=== PATIENT | female | born 1950 | race Caucasian/White ===

== ENCOUNTER 2023-02-28 09:20 | Emergency (ER) | payer OTHER, SELFPAY ==
[2023-02-28 09:28] VITALS: BP 154/93; PULSE 95; RESP 20; TEMP 38.1; O2SAT 94; BMI 27.0
--- NOTE | 2023-02-28 09:33 | CRLHL7_ITS ---
For Patients: As a result of the Century Cures Act, medical imaging exams and procedure reports are released immediately into your electronic medical record. You may view this report before your referring provider. If you have questions, please contact your health care provider. INDICATION: Cough TECHNIQUE: Chest 1 view COMPARISON: 09/23/2017 FINDINGS: Hiatal hernia. Degenerative changes at the left shoulder. No pneumothorax or large volume pleural effusion. IMPRESSION: No acute findings. Dictated by Maxwell Martell MD @ 02/28/2023 10:08:05 AM (Electronically Signed)
--- NOTE | 2023-02-28 09:34 | ED.GENADULT ---
HPI - General Adult General Chief complaint: Fever Stated complaint: Waking up due to cough, fever Time Seen by Provider: 02/28/23 09:25 History of Present Illness HPI narrative: Patient is a 69-year-old female without significant medical history or lung issues, presents with a cough for the last 3 days. Has had a low-grade temp. Her 's home recovering from ruptured appendicitis and subsequent surgery, and she is worried about getting him sick. She has had a low-grade temp. She has had a cough. She actually reports that over the last few hours and last night she felt better. She has had no chills rigors. She has a low-grade temperature now 100.5. The patient denies production to her cough denies shortness of breath, denies chest pain, denies rigors as mention. She has not had regular pneumonia ear infections. Review of Systems Status of ROS: Reports: 6 or more systems reviewed and unremarkable except as noted in History and below [facility] Social History Smoking Status: Never smoker Do you use any of these nicotine containing products: None Second hand tobacco smoke exposure: No How often do you have a drink containing alcohol: 2-4 times a month How many standard drinks containing alcohol do you have on a typical day: 1 or 2 How often do you have six or more drinks on one occasion: Never AUDIT-C Alcohol total score: 2 Non-prescribed substance use: denies use service: No Exam Narrative: Exam Narrative: Objective: Patient is alert orient x3 Temp is 100.5? Noncyanotic, breathing normally, talks in even unlabored sentences denies chest her pain or shortness of breath HEENT is unremarkable no facial asymmetry Mouth is clear Neck is supple Chest is clear no rales or wheezing Heart rhythm regular heart murmur Extremities are no edema, neurologic grossly nonfocal. Patient is ambulatory. Const: Vital Signs, click to edit/add: Vital Signs - 24 hr 02/28/23 09:28 02/28/23 10:30 02/28/23 10:38 Temperature 100.5 F H 100.5 F H Pulse Rate [Pulse Oximeter] 95 86 95 Respiratory Rate 20 16 20 Blood Pressure [Ri ght Arm] 126/84 Blood Pressure [Ri ght Upper Arm] 154/93 H 154/93 H Pulse Oximetry 94 95 Oxygen Delivery Me thod Room Air Room Air Course Vital Signs Vital signs: Initial Vital Signs Temperature 100.5 F H 02/28/23 09:28 Temperature Source Temporal Artery Scan 02/28/23 09:28 Pulse Rate 95 02/28/23 09:28 Pulse Rhythm Regular 02/28/23 09:28 Respiratory Rate 20 02/28/23 09:28 Blood Pressure 154/93 H 02/28/23 09:28 Blood Pressure Mean 113 H 02/28/23 09:28 Blood Pressure Position Supine 02/28/23 09:28 Pulse Oximetry 94 02/28/23 09:28 Oxygen Delivery Method Room Air 02/28/23 09:28 Vital Signs Temperature 100.5 F H 02/28/23 09:28 Pulse Rate 95 02/28/23 09:28 Respiratory Rate 20 02/28/23 09:28 Blood Pressure 154/93 H 02/28/23 09:28 Pulse Oximetry 94 02/28/23 09:28 Oxygen Delivery Method Room Air 02/28/23 09:28 Temperature 100.5 F H 02/28/23 10:38 Pulse Rate 95 02/28/23 10:38 Respiratory Rate 20 02/28/23 10:38 Blood Pressure 154/93 H 02/28/23 10:38 Pulse Oximetry 95 02/28/23 10:30 Oxygen Delivery Method Room Air 02/28/23 10:30 Medical Decision Making MDM Narrative Medical decision making narrative: 72-year-old white female with a history of 3 days of cough, now basically improving, but still with a low-grade temperature. I think it be reasonable to get an x-ray of her chest, check a COVID/influenza/RSV test. Disposition pending findings above. Rule out pneumonia, rule out COVID rule out influenza. Rule out RSV . Addendum 10:30 a.m. the patient is influenza a. She has been sick for few days, is feeling better I think we could simply observe at this point I do not think Tamiflu and have that much Advantage at this point. She is breathing well and has good oxygenation. Would recommend she stay way from her as best as possible, and wash hands well , wear a mask . Lab Data Labs: Lab Results 02/28/23 Range/Units 09:33 SARS-CoV-2 (PCR) Negative SARS-CoV-2 (Negative) Influenza Type A (PCR) POSITIVE PCR FLU A A (Negative) Influenza Type B (PCR) Negative PCR FLU B (Negative) RSV (PCR) Negative PCR RSV (Negative) Discharge Plan Discharge Clinical Impression: Acute cough, Influenza A Patient Disposition: Home w/ Parent or Adult Condition: Stable Additional Instructions: Rest, fluids, Tylenol as needed, light activity, avoid people that you do not get sick. Would recommend wearing a mask until you feel better. Activity Level: Light activity Discharge Diet: Regular Follow Up/Referrals: Wu Spain MD [Primary Care Provider] - Stand Alone Forms: [employer] Info Instructions
[2023-02-28 10:20] LABS: PCR FLU A POSITIVE PCR FLU A (Negative); PCR FLU B Negative PCR FLU B (Negative); PCR RSV Negative PCR RSV (Negative); SARS PCR* Negative SARS-CoV-2 (Negative)
[2023-02-28 10:30] VITALS: BP 126/84; PULSE 86; RESP 16; O2SAT 95
[2023-02-28 10:38] VITALS: BP 154/93; PULSE 95; RESP 20; TEMP 38.1
== END 2023-02-28 10:38 | disposition home or self-care (01) ==
PROVIDERS: Emergency Provider Family Medicine; PCP Family Medicine
DX: J10.1 Influenza due to other identified influenza virus with other respiratory manifestations (principal); R05.1 Acute cough
CPT/HCPCS: 71045; 87631; 99284